=== PATIENT | male | born 1975 | race Caucasian/White ===

== ENCOUNTER 2019-06-18 13:28 | Emergency (ER) | payer BC ==
[~2019-06-18] VITALS: Ht 185.4 cm; Wt 124.7 kg
[2019-06-18 13:28] VITALS: BP_SYST 115
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
--- NOTE | 2019-06-18 13:59 | NUR ---
ER Dr. Mccormick at bedside examining patient.
[2019-06-18 14:52] VITALS: BP_SYST 119
--- NOTE | 2019-06-18 14:53 | NUR ---
Patient given written and verbal discharge instructions and verbalizes understanding. ER MD discussed with patient the results and treatment provided. Patient in stable condition. ID arm band removed. Rx of NONE given. Patient educated on pain management and to follow up with PMD. Pain Scale 0/10. Opportunity for questions provided and answered. Medication side effect fact sheet provided.
== END 2019-06-18 14:52 | disposition home or self-care (01) ==
LOC: SED 13:28
DX: S00.01XA Abrasion of scalp, initial encounter (principal); V43.52XA Car driver injured in collision with other type car in traffic accident, initial encounter; Y93.89 Activity, other specified; Y92.488 Other paved roadways as the place of occurrence of the external cause; Y99.8 Other external cause status
CPT/HCPCS: 99283

== ENCOUNTER 2023-10-05 21:49 | Emergency (ER) | payer BC, MEDICAID ==
[~2023-10-05] VITALS: Ht 185.4 cm; Wt 124.7 kg
[2023-10-05 22:09] VITALS: BP_SYST 141; PULSE 98; RESP 22; TEMP 97.6; O2SAT 98
[2023-10-05 23:54] VITALS: BP_SYST 141; PULSE 98; RESP 22; TEMP 97.6; O2SAT 98
== END 2023-10-05 23:54 | disposition left against medical advice (07) ==
LOC: SED 21:49
DX: F41.9 Anxiety disorder, unspecified (principal); R06.02 Shortness of breath; Z53.21 Procedure and treatment not carried out due to patient leaving prior to being seen by health care provider
CPT/HCPCS: 93005; 99281